=== PATIENT | male | born 2000 | race African-American/Black ===

== ENCOUNTER 2020-12-28 21:27 | Emergency (ER) | payer OTHER ==
[~2020-12-28] VITALS: Ht 182.9 cm; Wt 73.0 kg
[2020-12-28] MEDS ORDERED: MORPHINE SULFATE 4 MG/ML CPJ (NOT FOR IM USE) IV ONE (21:45)
[2020-12-28] MEDS ORDERED: FENTANYL CITRATE/PF 50MCG/ML 2ML VIAL IV ONE (22:00)
[2020-12-28] MEDS ORDERED: KETAMINE HCL 50 MG/ML 10ML IV ONE (22:45)
[2020-12-28] MEDS ORDERED: ONDANSETRON HCL 4MG/2ML INJ IV ONE (22:45)
[2020-12-29 01:24] VITALS: BP 134/72
== END 2020-12-29 01:37 | disposition home or self-care (01) ==
LOC: ER 21:27
DX: S43.084A Other dislocation of right shoulder joint, initial encounter (principal); Y93.11 Activity, swimming; Y93.89 Activity, other specified; Y92.89 Other specified places as the place of occurrence of the external cause; Y99.8 Other external cause status
CPT/HCPCS: 23650; 73030; 96374; 96375; 99152; 99285; J2405; J3010; J3490; L3670